=== PATIENT | female | born 1950 | race Caucasian/White ===

== ENCOUNTER → 2016-07-10 | Outpatient (CLI) | payer MEDICARE, BC ==
[~2016-07-10] MED LIST: ACTONEL PO; ACTOS PO; AMITRYPTYLINE PO; EFFEXOR PO; EFFEXOR75 MG PO; HYZAAR PO; INDOMETHACIN75 MG PO; LESCOL XL80 MG PO; LYRICA PO; METHYLIN ER PO; NOVOLOG MIX 70/10 ML INJ; PROTONIX PO; SYNTHROID PO; TOPAMAX PO; VASERETIC 5-12.1 TAB PO; ZYLOPRIM PO
== END | disposition home or self-care (01) ==
LOC: CSSDAY 13:10
DX: M81.0 Age-related osteoporosis without current pathological fracture (principal); Z79.899 Other long term (current) drug therapy
CPT/HCPCS: 82310; 96372; J0897